=== PATIENT | male | born 1955 | race Caucasian/White ===

== ENCOUNTER 2024-10-31 08:23 | Inpatient (IN) | payer OTHER ==
[~2024-10-31] VITALS: Ht 167.6 cm; Wt 65.4 kg
[2024-10-31 08:27] VITALS: O2SAT 100
[2024-10-31] MEDS ORDERED: NITROGLYCERIN 0.4MG TABLET SL SL PRN (08:30)
[2024-10-31 09:02] LABS: BASOPHILS % 0.7 % (0.0-2.0); EOSINOPHILS % 5.3 % (0.0-5.0); HEMATOCRIT. 39.7 % (42.0-52.0); HEMOGLOBIN. 13.9 g/dL (14.0-18.0); LYMPHOCYTES % 36.1 % (20.0-50.0); MEAN PLATELET VOLUME 8.0 fl (7.4-10.4); MONOCYTES % 11.8 % (2.0-8.0); NEUTROPHILS % 46.1 % (40.0-76.0); PLATELET 160 x1000/uL (130-400); RED BLOOD CELL COUNT 4.16 mill/uL (4.7-6.1); RED CELL DISTRIBUTION WIDTH 13.3 % (11.6-14.6)
[2024-10-31 09:16] LABS: CREATININE 0.8 mg/dL (0.6-1.3); UREA NITROGEN BLOOD 14 mg/dL (9-23)
[2024-10-31 09:17] LABS: TROPONIN I HIGH SENSITIVITY 4 ng/L (3.0-53)
[2024-10-31 09:18] LABS: ASPARTATE AMINOTRANSFERASE 21 IU/L (<34); BILIRUBIN DIRECT 0.2 mg/dL (<=3.0); BILIRUBIN TOTAL 0.7 mg/dL (0.1-1.0); PROTEIN TOTAL 6.7 g/dL (6.0-8.3)
[2024-10-31] MEDS: ASPIRIN 81MG TABLET PO ONE (09:55)
[2024-10-31 14:00] VITALS: BP 132/60; PULSE 77; RESP 16; TEMP 36.5848; TEMP 36.6; O2SAT 98
[2024-10-31] MEDS ORDERED: METO25TA6 PO (15:08)
[2024-10-31] MEDS ORDERED: LOSA25TA26 PO (15:08)
[2024-10-31] MEDS ORDERED: ATOR-2 PO (15:08)
[2024-10-31] MEDS ORDERED: DEXTROSE 50% WATER 50ML SYRINGE IV PRN (15:15)
[2024-10-31] MEDS ORDERED: METF-414 PO ×2 (16:43→20:07)
[2024-10-31] MEDS ORDERED: ASPI-1406 PO (16:43)
[2024-10-31] MEDS: INSULIN LISPRO 100 UNITS/ML SUBCUT SCH (17:50)
[2024-10-31] MEDS: ENOXAPARIN 60MG/0.6ML SYR SUBCUT SCH (18:06)
[2024-10-31] MEDS: BLOOD SUGAR DIAGNOSTIC STRIP TEST SCH (18:06)
[2024-10-31] MEDS: ASPIRIN 81MG TABLET PO SCH (18:07)
[2024-10-31] MEDS ORDERED: ASPI-1497 PO (20:08)
[2024-10-31] MEDS: ATORVASTATIN CALCIUM 40MG TABLET PO SCH (20:33)
[2024-10-31] MEDS: METOPROLOL TARTRATE 25MG TABLET PO SCH (20:33)
[2024-10-31 21:56] LABS: INR 1.0
[2024-10-31 22:01] LABS: TRIGLYCERIDE 174.0 mg/dL (0-150)
[2024-10-31 22:02] LABS: LDL CHOLESTEROL 101.0 mg/dL (5-100)
[2024-10-31 22:08] LABS: T4 FREE 1.12 ng/dL (0.89-1.76)
[2024-11-01] VITALS (7 sets, daily range): BP systolic 112–151; BP diastolic 60–80; PULSE 54–72; RESP 16–20; TEMP 36.4–36.9; O2SAT 97–99
[2024-11-01] MEDS: ENOXAPARIN 60MG/0.6ML SYR SUBCUT NR (01:18)
[2024-11-01 03:31] LABS: *AMPHETAMINES SCREEN URINE NEGATIVE (NEGATIVE); *BARBITURATES SCREEN URINE NEGATIVE (NEGATIVE); *BENZODIAZEPINES SCREEN URINE NEGATIVE (NEGATIVE); *COCAINE SCREEN URINE NEGATIVE (NEGATIVE); CANNABINOID URINE SCREEN NEGATIVE (NEGATIVE); ECSTASY MDMA SCREEN URINE NEGATIVE (NEGATIVE); METHADONE URINE SCREEN NEGATIVE (NEGATIVE); OPIATES URINE SCREEN NEGATIVE (NEGATIVE); PHENCYCLIDINE URINE SCREEN NEGATIVE (NEGATIVE)
[2024-11-01 07:20] LABS: BASOPHILS % 0.7 % (0.0-2.0); EOSINOPHILS % 4.5 % (0.0-5.0); HEMATOCRIT. 42.4 % (42.0-52.0); HEMOGLOBIN. 14.7 g/dL (14.0-18.0); LYMPHOCYTES % 21.8 % (20.0-50.0); MEAN PLATELET VOLUME 8.6 fl (7.4-10.4); MONOCYTES % 7.9 % (2.0-8.0); NEUTROPHILS % 65.1 % (40.0-76.0); PLATELET 162 x1000/uL (130-400); RED BLOOD CELL COUNT 4.40 mill/uL (4.7-6.1); RED CELL DISTRIBUTION WIDTH 13.5 % (11.6-14.6)
[2024-11-01 07:31] LABS: INR 1.1
[2024-11-01 07:42] LABS: CREATININE 0.8 mg/dL (0.6-1.3); TROPONIN I HIGH SENSITIVITY 5 ng/L (3.0-53); UREA NITROGEN BLOOD 13 mg/dL (9-23)
[2024-11-01] MEDS ORDERED: MEDICATION NOT ON FORMULARY EA (Atorvastatin Calcium 1 TAB) PO SCH (09:00)
[2024-11-01] MEDS: LOSARTAN 25 MG TABLET PO SCH (09:21)
[2024-11-01] MEDS: ENOXAPARIN 60MG/0.6ML SYR SUBCUT SCH (09:26)
[2024-11-01 10:48] LABS: CLARITY URINE CLEAR (CLEAR); COLOR URINE YELLOW (YELLOW); GLUCOSE URINE NEGATIVE (NEGATIVE); KETONES URINE NEGATIVE (NEGATIVE); LEUKOCYTE ESTERASE URINE NEGATIVE (NEGATIVE); NITRITE URINE NEGATIVE (NEGATIVE); OCCULT BLOOD URINE NEGATIVE (NEGATIVE); PH URINE 6.5 (4.5-8.0); PROTEIN URINE NEGATIVE (NEGATIVE); SPECIFIC GRAVITY URINE 1.016 (1.005-1.030); UROBILINOGEN URINE 0.2 E.U./dL (0.2-1.0)
[2024-11-02] VITALS: BP 117/63; PULSE 52; RESP 19; TEMP 36.2; O2SAT 97
[2024-11-02 04:00] VITALS: BP 108/60; PULSE 56; RESP 19; TEMP 36.8; O2SAT 97
[2024-11-02 08:00] VITALS: BP 117/61; PULSE 79; RESP 17; TEMP 35.9; O2SAT 98
[2024-11-02 12:00] VITALS: BP 97/56; PULSE 72; RESP 18; TEMP 36.4; O2SAT 99
[2024-11-02 16:00] VITALS: BP 124/91; PULSE 102; RESP 18; TEMP 35.6; O2SAT 98
[2024-11-02 20:00] VITALS: BP 117/66; PULSE 55; RESP 19; TEMP 36.5; O2SAT 100
[2024-11-03] VITALS: BP 105/55; PULSE 18; PULSE 55; RESP 18; TEMP 36.6; O2SAT 100
[2024-11-03 04:00] VITALS: BP_SYST 105; BP_SYST 113; BP_DIAS 55; BP_DIAS 64; PULSE 59; RESP 18; TEMP 36.6; O2SAT 100; O2SAT 98
[2024-11-03 08:00] VITALS: BP 103/55; PULSE 54; RESP 18; TEMP 36.3; O2SAT 96
[2024-11-03] MEDS ORDERED: VERAPAMIL HCL 2.5 MG/1 ML 2ML VIAL IV ONE (08:28)
[2024-11-03] MEDS ORDERED: IODIXANOL 320MG/ML 100 ML BOTTLE IV ONE (08:29)
[2024-11-03] MEDS ORDERED: LIDOCAINE HCL 1% 20ML VIAL ONE (08:29)
[2024-11-03] MEDS ORDERED: HEPARIN 1000 UNITS/ML 10ML ONE (08:29)
[2024-11-03 09:00] LABS: BASOPHILS % 0.4 % (0.0-2.0); EOSINOPHILS % 3.3 % (0.0-5.0); HEMATOCRIT. 41.9 % (42.0-52.0); HEMOGLOBIN. 14.6 g/dL (14.0-18.0); LYMPHOCYTES % 28.2 % (20.0-50.0); MEAN PLATELET VOLUME 8.5 fl (7.4-10.4); MONOCYTES % 9.7 % (2.0-8.0); NEUTROPHILS % 58.4 % (40.0-76.0); PLATELET 161 x1000/uL (130-400); RED BLOOD CELL COUNT 4.43 mill/uL (4.7-6.1); RED CELL DISTRIBUTION WIDTH 12.9 % (11.6-14.6)
[2024-11-03 09:18] LABS: CREATININE 0.7 mg/dL (0.6-1.3); UREA NITROGEN BLOOD 16 mg/dL (9-23)
[2024-11-03 12:00] VITALS: BP 140/69; PULSE 92; RESP 18; TEMP 36.1; O2SAT 98
== END 2024-11-03 11:40 | disposition left against medical advice (07) | DRG 303 ==
LOC: ER 08:23 → 6WST 11:24 → EDBEDREQ 11:27 → EDBEDREQTM 11:27 → ENRESERV 12:04
PROVIDERS: ADMIT Internal Medicine; ATTEND Internal Medicine
DX: I25.110 Atherosclerotic heart disease of native coronary artery with unstable angina pectoris (principal); E11.9 Type 2 diabetes mellitus without complications; I16.0 Hypertensive urgency; I10 Essential (primary) hypertension; Z53.29 Procedure and treatment not carried out because of patient's decision for other reasons; E78.00 Pure hypercholesterolemia, unspecified; I25.2 Old myocardial infarction; Z95.5 Presence of coronary angioplasty implant and graft
CPT/HCPCS: 36415; 71045; 80048; 80061; 80076; 80305; 81003; 82962; 83036; 83880; 84439; 84443; 84484; 85025; 93005; 93306; 99285; A4606; J1644; J1650; J2003; J3490; Q9967